=== PATIENT | female | born 2000 | race Caucasian/White ===

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

== ENCOUNTER 2018-02-12 15:49 | Emergency (ER) | payer OTHER ==
[~2018-02-12] VITALS: Ht 167.6 cm; Wt 90.9 kg
[~2018-02-12 15:49] MED LIST: MOTRIN800 MG PO; PERCOCET 5/31 TABLET PO
[2018-02-12 19:54] VITALS: BP 134/81
== END 2018-02-12 19:56 | disposition home or self-care (01) ==
LOC: RME 15:49 → EME 15:49 → RME 19:56
DX: R23.8 Other skin changes (principal); I99.9 Unspecified disorder of circulatory system; Z96.652 Presence of left artificial knee joint; Z98.890 Other specified postprocedural states
CPT/HCPCS: 93971; 99281; 99282